=== PATIENT | female | born 1960 | race Caucasian/White ===

== ENCOUNTER 2018-02-01 06:02 | Day surgery (SDC) | payer OTHER ==
[~2018-02-01] VITALS: Ht 157.5 cm; Wt 103.5 kg
[~2018-02-01 06:02] MED LIST: BUSP15 PO; CITA-106 PO; IBUP-2070 PO; IPRA4AER IH; QUET100T PO; SODIUM CHLORIDE 0.9% 1,000 ML IV ONE; TRAZ-220 PO
[2018-02-01] MEDS ORDERED: ALBUTEROL SULFATE 2.5 MG/0.5 ML NEB SOLUTION NEB ONE ×3 (06:03→11:00)
[2018-02-01] MEDS ORDERED: LIDOCAINE HCL 2% 30 ML JELLY TP ONE (06:03)
[2018-02-01] MEDS ORDERED: BENZOCAINE 20% 50 MCG/SPRAY 57 GM TP ONE (06:03)
[2018-02-01] MEDS ORDERED: LIDOCAINE HCL 4% 50 ML SOLUTION TP ONE (06:03)
[2018-02-01] MEDS ORDERED: BUPR-93 PO (06:42)
[2018-02-01] MEDS ORDERED: TIOT185 IH (06:42)
[2018-02-01] MEDS ORDERED: OMEP10CA41 PO (06:42)
[2018-02-01] MEDS ORDERED: MONT10TA21 PO (06:42)
[2018-02-01] MEDS ORDERED: BUSP10TA3 PO (06:42)
[2018-02-01] MEDS ORDERED: MOME13HF IH (06:42)
[2018-02-01] MEDS ORDERED: CETI10TA58 PO (06:42)
[2018-02-01] MEDS ORDERED: SODIUM CHLORIDE 0.9% 1,000 ML IV ONE (07:00)
[2018-02-01] MEDS ORDERED: MIDAZOLAM HCL 2 MG/2 ML VIAL ONE (07:47)
[2018-02-01] MEDS ORDERED: FentaNYL CITRATE-PF 100 MCG/2 ML VIAL ONE (07:47)
[2018-02-01] MEDS ORDERED: MethylPREDNISolone SOD SUCC 125 MG/2 ML VIAL IVP ONE (09:15)
[2018-02-01] MEDS ORDERED: MethylPREDNISolone SOD SUCC 125 MG/2 ML VIAL ONE (09:27)
[2018-02-01] MEDS ORDERED: MethylPREDNISolone SOD SUCC 40 MG/ML VIAL ONE (10:44)
[2018-02-01] MEDS ORDERED: MethylPREDNISolone SOD SUCC 40 MG/ML VIAL IVP ONE (10:45)
[2018-02-01] MEDS ORDERED: IPRATROPIUM BROMIDE 0.5 MG/2.5 ML NEB SOLUTION NEB ONE ×2 (10:50→11:00)
[2018-02-01] MEDS ORDERED: OXYGEN THERAPY IH SCH (20:00)
== END 2018-02-01 11:40 | disposition home or self-care (01) ==
LOC: SURGERY 06:02 → EDSEX 09:15 → SURGERY 11:40
PROVIDERS: ATTEND Internal Medicine Critical Care Medicine
DX: J38.4 Edema of larynx (principal); B37.0 Candidal stomatitis; J84.111 Idiopathic interstitial pneumonia, not otherwise specified; J43.9 Emphysema, unspecified; D64.9 Anemia, unspecified; F32.9 Major depressive disorder, single episode, unspecified; F41.9 Anxiety disorder, unspecified; Z87.01 Personal history of pneumonia (recurrent); Z88.5 Allergy status to narcotic agent; Z87.891 Personal history of nicotine dependence; Z90.49 Acquired absence of other specified parts of digestive tract; Z98.51 Tubal ligation status; Z98.41 Cataract extraction status, right eye; Z90.89 Acquired absence of other organs; Z86.19 Personal history of other infectious and parasitic diseases; Z87.440 Personal history of urinary (tract) infections; Z85.828 Personal history of other malignant neoplasm of skin; Z98.890 Other specified postprocedural states; Z79.899 Other long term (current) drug therapy
CPT/HCPCS: 31623; 31624; 71045; 87015; 87070; 87205; 87206; 87220; 88108; 88184; 88185; 88312; 94640; J2250; J2920; J2930; J3010; J7030